=== PATIENT | male | born 1995 | race Caucasian/White ===

== ENCOUNTER 2018-02-05 17:08 | Emergency (ER) | payer OTHER ==
[~2018-02-05] VITALS: Wt 72.6 kg
[~2018-02-05 17:08] MED LIST: AUGMENTIN 875875 MG PO; BACTRIM DS 8001 TA1 PO; KEFLEX500 MG PO; KENALOG0.1% TP; NKHM; OMNICEF300 MG PO; PREDNISONE10 MG PO; TRAMADOL HCL50 MG PO; VISTARIL50 MG PO
[2018-02-05] MEDS ORDERED: ZITHROMAX250 MG PO (19:11)
== END 2018-02-05 19:15 | disposition home or self-care (01) ==
LOC: ED 17:08
DX: H66.91 Otitis media, unspecified, right ear (principal); L72.3 Sebaceous cyst; F41.9 Anxiety disorder, unspecified; F17.200 Nicotine dependence, unspecified, uncomplicated; Z79.899 Other long term (current) drug therapy

== ENCOUNTER 2022-10-24 17:18 | Emergency (ER) | payer BC ==
[~2022-10-24] VITALS: Ht 170.1 cm; Wt 72.6 kg
[~2022-10-24 17:18] MED LIST changes: +ZITHROMAX250 MG PO
[2022-10-24 18:04] LABS: BILIRUBIN Negative (Negative); BLOOD Negative (Negative); CLARITY Clear (Clear); COLOR Yellow (Yellow); GLUCOSE Negative (Negative); KETONE Negative (Negative); LEUKO ESTERASE 3+ (Negative); NITRITE Negative (Negative); PH 6.5 (4.5-8.0); UROBILINOGEN 0.2 E.U./dl (0.0-1.0)
[2022-10-24 18:52] LABS: BACTERIA TRACE; WBC 16-20 wbc/hpf (0-5)
[2022-10-24] MEDS ORDERED: MACROBID100 M1 PO (18:56)
== END 2022-10-24 19:11 | disposition home or self-care (01) ==
LOC: ED 17:18
PROVIDERS: Nurse Practitioner Family
DX: N39.0 Urinary tract infection, site not specified (principal)